=== PATIENT | male | born 1960 | race African-American/Black ===

== ENCOUNTER 2020-04-30 14:42 | Emergency (ER) | payer MEDICAID, OTHER ==
[~2020-04-30] VITALS: Ht 180.3 cm; Wt 81.8 kg
[2020-04-30 14:53] VITALS: BP 150/90
[2020-04-30] MEDS ORDERED: CYCL10TA2 PO (16:15)
[2020-04-30] MEDS ORDERED: DICL50TA2 PO (16:15)
[2020-04-30] MEDS ORDERED: METH4TAB2 PO (16:15)
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
--- NOTE | 2020-05-06 10:52 | EKG ---
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
== END 2020-04-30 16:20 | disposition home or self-care (01) ==
LOC: ER 14:42
DX: M43.6 Torticollis (principal); F17.200 Nicotine dependence, unspecified, uncomplicated; Z86.718 Personal history of other venous thrombosis and embolism
CPT/HCPCS: 93005; 99283

== ENCOUNTER 2021-06-22 09:57 | Emergency (ER) | payer OTHER ==
[~2021-06-22] VITALS: Ht 180.3 cm; Wt 80.0 kg
[~2021-06-22 09:57] MED LIST: CYCL10TA19 PO; DICL50TA2 PO; METH4TAB2 PO
[2021-06-22 10:26] VITALS: BP 172/82
[2021-06-22] MEDS ORDERED: DIPH,PERTUSS(ACELL),TET VAC/PF 0.5 ML SYRINGE. VAX IM ONE (10:45)
[2021-06-22] MEDS ORDERED: LIDOCAINE 1%/EPI 1:100,000 20 ML VIAL. INJ ONE (11:00)
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
[2021-06-22] MEDS ORDERED: CEPH500T PO (11:41)
== END 2021-06-22 11:51 | disposition home or self-care (01) ==
LOC: ER 09:57
DX: S51.812A Laceration without foreign body of left forearm, initial encounter (principal); F17.200 Nicotine dependence, unspecified, uncomplicated; Z86.718 Personal history of other venous thrombosis and embolism; Y08.89XA Assault by other specified means, initial encounter; Y93.89 Activity, other specified; Y92.89 Other specified places as the place of occurrence of the external cause; Y99.8 Other external cause status
CPT/HCPCS: 12002; 90471; 90715; 99283; J3490

== ENCOUNTER 2022-01-03 12:39 | Emergency (ER) | payer OTHER ==
[~2022-01-03] VITALS: Ht 180.3 cm; Wt 79.5 kg
[~2022-01-03 12:39] MED LIST changes: +CEPH500T PO
[2022-01-03 12:42] VITALS: BP 139/82
[2022-01-03] MEDS ORDERED: oxyCODONE/APAP 5/325 1 TAB TABLET PO ONE (13:30)
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
== END 2022-01-03 14:50 | disposition home or self-care (01) ==
LOC: ER 12:39
DX: S20.211A Contusion of right front wall of thorax, initial encounter (principal); M54.42 Lumbago with sciatica, left side; F17.200 Nicotine dependence, unspecified, uncomplicated; Z86.718 Personal history of other venous thrombosis and embolism; V49.9XXA Car occupant (driver) (passenger) injured in unspecified traffic accident, initial encounter; Y93.I9 Activity, other involving external motion; Y92.89 Other specified places as the place of occurrence of the external cause; Y99.8 Other external cause status
CPT/HCPCS: 71250; 74176; 99284